=== PATIENT | male | born 1965 | race Caucasian/White ===

== ENCOUNTER 2016-12-15 18:51 | Emergency (ER) | payer BC ==
[2016-12-15] MEDS ORDERED: PRINIVIL20 M1 PO (18:56)
== END 2016-12-15 19:50 | disposition home or self-care (01) ==
LOC: SED 18:51
DX: L23.7 Allergic contact dermatitis due to plants, except food (principal); L29.1 Pruritus scroti; I10 Essential (primary) hypertension; Z88.1 Allergy status to other antibiotic agents
CPT/HCPCS: 99283